=== PATIENT | female | born 1945 | race Caucasian/White ===

== ENCOUNTER 2018-06-20 10:54 | Emergency (ER) | payer MEDICARE, OTHER ==
[~2018-06-20] VITALS: Ht 160 cm; Wt 56.7 kg
--- OUTSIDE RECORDS SUMMARY | ~2018-06-20 | XMS | Clinical Summary ---
Demographics + + + | Address | [address] | | | [place] [address] | + + + | Home Phone | | + + + | Preferred Language | Unknown | + + + | Marital Status | Unknown | + + + | Episcopal Affiliation | Unknown | + + + | Race | Unknown | + + + | Ethnic Group | Unknown | + + + Author + + + | Author | [facility] | | | and [place] | + + + | Organization | [facility] | | | and [place] | + + + | Address | Unknown | + + + | Phone | Unavailable | + + + Care Team Providers + +------+ + | Care Academic Affairs Coordinator Name | Role | Phone | + +------+ + PP | Unavailable | + +------+ + Allergies Not on File Current Medications Not on file Active Problems Not on file Social History + +-------+ +--------+------+ | Tobacco Use | Types | Packs/Day | Years | Date | | | | | Used | | + +-------+ +--------+------+ | Never Assessed | | | | | + +-------+ +--------+------+ + + + | Sex Assigned at | Date Recorded | | | | + + + | Not on file | | + + + Plan of Treatment + + + + + | Health Maintenance | Due Date | Last Done | Comments | + + + + + | Vaccine: | | | | | Dtap/Tdap/Td (1 - | 3 | | | | Tdap) | | | | + + + + + | Vaccine: Zoster (1 | | | | | of 2) | 4 | | | + + + + + | Vaccine: | | | | | Pneumococcal 65+ | 9 | | | | Low/Medium Risk (1 | | | | | of 2 - PCV13) | | | | + + + + + | Vaccine: Influenza | | | | | (#1) | 8 | | | + + + + + Results Not on filefrom Last 3 Months"
--- OUTSIDE RECORDS SUMMARY | ~2018-06-20 | XMS | Clinical Summary ---
Demographics + + + | Address | [address] | | | [place] [address] | + + + | Home Phone | | + + + | Preferred Language | Unknown | + + + | Marital Status | Unknown | + + + | Hindu Affiliation | Unknown | + + + | Race | Unknown | + + + | Ethnic Group | Unknown | + + + Author + + + | Author | [facility] | | | and [place] | + + + | Organization | [facility] | | | and [place] | + + + | Address | Unknown | + + + | Phone | Unavailable | + + + Care Team Providers + +------+ + | Care Self Storage Manager Name | Role | Phone | + [...]
[~2018-06-20 10:54] MED LIST: CITRACAL-VIT D1 EACH PO; COZAAR100 MG PO; EXCEDRIN EXTRA1 EACH PO; FLONASE2 SPRAY; FOSAMAX70 MG PO; LIDOCAINE HCL100 ML MT; MULTI VITAMIN1 EACH PO; NORVASC10 MG PO; PRAVACHOL10 MG PO; VITAMIN D32000 UNI1 PO
--- NOTE | 2018-06-20 19:57 | EKG ---
[facility] [address] [facility] [place], [place] [address] Signed Sinus rhythm with 1st degree AV block with occasional premature ventricular complexes Left axis deviation Left bundle branch block Abnormal ECG No previous ECGs available Confirmed by DINH OGLESBY MD ([id number] on 06/20/2018 7:56:48 PM Electronically Signed By: DINH OGLESBY MD 06/20/181956 PATIENT NAME: WOOD FULLER Electrocardiogram DATE OF : 41 PHYSICIAN: DINH OGLESBY MD REPORT #: [id number] REPORT IS CONFIDENTIAL AND NOT TO BE RELEASED WITHOUT AUTHORIZATION
== END 2018-06-20 14:26 | disposition home or self-care (01) ==
LOC: ED 10:54
DX: R07.89 Other chest pain (principal); R42 Dizziness and giddiness; I10 Essential (primary) hypertension; Z85.3 Personal history of malignant neoplasm of breast; F17.200 Nicotine dependence, unspecified, uncomplicated; Z90.13 Acquired absence of bilateral breasts and nipples; Z88.8 Allergy status to other drugs, medicaments and biological substances; Z88.6 Allergy status to analgesic agent; Z88.0 Allergy status to penicillin; Z88.2 Allergy status to sulfonamides; Z88.5 Allergy status to narcotic agent; Z79.82 Long term (current) use of aspirin; Z79.899 Other long term (current) drug therapy
CPT/HCPCS: 36415; 71045; 80053; 81001; 84484; 85025; 93005; 93010; 99285-25; 99406